=== PATIENT | male | born 1990 | race Caucasian/White ===

== ENCOUNTER 2018-09-27 22:09 | Emergency (ER) | payer OTHER ==
[2018-09-27 22:18] VITALS: BP 164/79; PULSE 78; RESP 20; TEMP 98.4
[2018-09-27] MEDS ORDERED: LIDOCAINE 1% INJ 10MG/ML (20 ML MDV) SQ STA (22:46)
--- NOTE | 2018-09-27 23:26 | ED ---
General Adult HPI - General Source: patient, RN notes reviewed, old records reviewed Mode of arrival: ambulatory Limitations: no limitations <Colten Mckeon - Last Filed: 09/27/18 23:57> <Sarai Bravo - Last Filed: 09/28/18 04:33> - General Chief complaint: Wound/Laceration Stated complaint: [facility] Time Seen by Provider: 09/27/18 22:19 - History of Present Illness Initial comments: 27-year-old male patient presents to ED with laceration on third and fourth digit of left hand. 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 When piece of metal cut his hand causing a laceration. Laceration is on the dorsal aspect of his third and fourth digits. Superficial. Patient denies any pain on hand or any other injury sustained. Patient states last tetanus was 2 years ago. Patient denies any other complaints. Systemic: Pt denies fatigue, myalgia, fever/chills, rash. Pt denies weakness, night sweats, weight loss. Neuro: Pt denies headache, visual disturbances, syncope or pre-syncope. HEENT: Pt denies ocular discharge or irritation, otalgia, rhinorrhea, pharyngitis or notable lymphadenopathy. Cardiopulmonary: Pt denies chest pain, SOB, heart palpitations, dyspnea on exertion. Abdominal/GI: Pt denies abdominal pain, n/v/d. : Pt denies dysuria, burning w/ urination, frequency/urgency. Denies new onset urinary or bowel incontinence. MSK: Pt denies myalgia, loss of strength or function in extremities. Neuro: Pt denies new onset weakness, paresthesias. (Colten Mckeon) - Related Data Previous Rx's Medication Instructions Recorded Cephalexin [Keflex] 500 mg PO Q12HR 3 Days #6 cap 09/27/18 Allergies Allergy/AdvReac Type Severity Reaction Status Date / Time No Known Allergies Allergy Verified 10/23/15 00:43 Review of Systems ROS Other: All systems not noted in ROS Statement are negative. <Colten Mckeon - Last Filed: 09/27/18 23:57> ROS Other: All systems not noted in ROS Statement are negative. <Sarai Bravo - Last Filed: 09/28/18 04:33> ROS Statement: Those systems with pertinent positive or pertinent negative responses have been documented in the HPI. Past Medical History Past Medical History: No Reported History History of Any Multi-Drug Resistant Organisms: None Reported Past Surgical History: No Surgical Hx Reported Past Psychological History: No Psychological Hx Reported Smoking Status: Never smoker Past Alcohol Use History: Rare Past Drug Use History: None Reported <Colten Mckeon - Last Filed: 09/27/18 23:57> General Exam Limitations: no limitations <Colten Mckeon - Last Filed: 09/27/18 23:57> <LawrenceSarai P - Last Filed: 09/28/18 04:33> - General Exam Comments Initial Comments: Constitutional: NAD, AOX3, Pt has pleasant affect. HEENT: NC/AT, trachea midline, neck supple, no lymphadenopathy. Posterior pharynx non erythematous, without exudates. External ears appear normal, without discharge. Mucous membranes moist. Eyes PERRLA, EOM intact. There is no scleral icterus. No pallor noted. Cardiopulmonary: RRR, no murmurs, rubs or gallops, no JVD noted. Lungs CTAB in anterior and posterior solis. No peripheral edema. Abdominal exam: Abdomen soft and non-distended. Abdomen non-tender to palpation in all 4 quadrants. Bowel sounds active in LLQ. No hepatosplenomegaly. No ecchymosis Neuro: CN II-XII grossly intact. No nuchal rigidity. MSK: superficial laceration noted on dorsal aspect of 3rd and 4th digits distal to DIP joint. both lacerations are 1cm. Pt has intact flexion extension at MCP DIP AND PIP of all digits. Sensation intact, capillary refill <2 seconds. Pt has no tenderness in digits or hand / wrist. Wond closed with simple interrupted sutures. Pt tolerated procedure well. No posterior calf tenderness bilaterally, homans sign negative bilaterally. Posterior tibialis and radial pulse +2 bilaterally. Sensation intact in upper and lower extremities. Full active ROM in upper and lower extremities, 5/5 stregnth. (Colten Mckeon) Vital Signs 09/27/18 22:13 Temperature 98.4 F Pulse Rate 78 Respiratory 20 Rate Blood Pressure 164/79 O2 Sat by Pulse 99 Oximetry Procedures - Laceration Laceration #1 Consent Obtained: verbal consent Indication: laceration Site: hand (3rd digit L hand ) Size (cm): 1 Description: linear Depth: simple, single layer Anesthetic Used: lidocaine 1% Anesthesia Technique: local infiltration Amount (mls): 2 Pre-repair: wound explored (no bony or ligamentous involvement, superficial wound ), irrigated extensively, deep structures intact Type of Sutures: nylon Size of Sutures: 5-0 Number of Sutures: 2 Technique: simple, interrupted Patient Tolerated Procedure: well, no complications Laceration #2 Consent Obtained: verbal consent Indication: laceration Site: hand (4th digit L hand ) Size (cm): 1 Description: linear Depth: simple, single layer Anesthetic Used: lidocaine 1% Anesthesia Technique: local infiltration Amount (mls): 2 Pre-repair: wound explored, irrigated extensively, deep structures intact (no bony or ligamentous involvement, superficial wound ) Type of Sutures: nylon Size of Sutures: 5-0 Number of Sutures: 3 Technique: simple, interrupted Patient Tolerated Procedure: well, no complications <Colten Mckeon - Last Filed: 09/27/18 23:57> Medical Decision Making <Colten Mckeon - Last Filed: 09/27/18 23:57> <Sarai Bravo - Last Filed: 09/28/18 04:33> - Medical Decision Making 27-year-old male patient presents to ED with laceration on third and fourth digit of left hand. Pt VSS, afebrile. Physical exam displayed: superficial laceration noted on dorsal aspect of 3rd and 4th digits distal to DIP joint. both lacerations are 1cm. Pt has intact flexion extension at MCP DIP AND PIP of all digits. Sensation intact, capillary refill <2 seconds. Pt has no tenderness in digits or hand / wrist. Wound was cleaned extensively and closed with simple interupted sutures. Pt rx prophylactic keflex for 3 days. Pt to return to ED in 7-10 days for suture removal. Pt to f/u with PCP in 1-2 days. Case discussed in depth with Dr. Bravo. (Colten Mckeon) I was available for consultation in the emergency department. The history and physical exam were done by the midlevel provider. I was consulted for this patient's care. I reviewed the case with the midlevel provider and based on their presentation of the patient, I agree with the assessment, medical decision making and plan of care as documented. (Sarai Bravo) Disposition Is patient prescribed a controlled substance at d/c from ED?: No Time of Disposition: 23:26 <Colten Mckeon - Last Filed: 09/27/18 23:57> <Sarai Bravo - Last Filed: 09/28/18 04:33> Clinical Impression: Laceration Disposition: HOME SELF-CARE Condition: Stable Instructions (If sedation given, give patient instructions): Care For Your Stitches (ED), Laceration (ED) Additional Instructions: Patient to adhere to previously discussed treatment plan and will take medication(s) as directed. Patient to follow up with PCP in 1-2 days. Patient to return to ED if symptoms do not improve. return in 7-10 days for suture removal Prescriptions: Cephalexin [Keflex] 500 mg PO Q12HR 3 Days #6 cap Referrals: None,Stated [Primary Care Provider] - 1-2 days
== END 2018-09-27 23:40 | disposition home or self-care (01) ==
LOC: EC 22:09
DX: S61.213A Laceration without foreign body of left middle finger without damage to nail, initial encounter (principal); S61.215A Laceration without foreign body of left ring finger without damage to nail, initial encounter; W26.8XXA Contact with other sharp object(s), not elsewhere classified, initial encounter; Y92.69 Other specified industrial and construction area as the place of occurrence of the external cause; Y99.0 Civilian activity done for income or pay
CPT/HCPCS: 99283; 12001; J2001